=== PATIENT | female | born 1995 | race Caucasian/White ===

== ENCOUNTER 2020-03-22 19:40 | Inpatient (IN) | payer MEDICAID ==
[~2020-03-22] VITALS: Ht 152.4 cm; Wt 56.7 kg
[2020-03-22] MEDS ORDERED: FERR325T6 PO (20:15)
[2020-03-22] MEDS ORDERED: PREN-182 PO (20:15)
[2020-03-22] MEDS ORDERED: LACTATED RINGERS 1,000 ML IV SCH ×2 (21:00→21:45)
[2020-03-22] MEDS ORDERED: LIDOCAINE HCL 1% 20ML VIAL (Pyxis) INJ INFIL SCH (21:45)
[2020-03-22] MEDS ORDERED: DEXT 5%/LR + PITOCIN 20UNITS/L 1,000 ML IV SCH (21:45)
[2020-03-22] MEDS ORDERED: BUTORPHANOL TARTRATE 2 MG/ML VIAL IV PRN (21:45)
[2020-03-22] MEDS ORDERED: NALOXONE HCL 0.4 MG/ML 1ML VIAL IM PRN (21:45)
[2020-03-22] MEDS ORDERED: PENICILLIN G POTASSIUM 5 MMU in DEXT 5% WATER 100 ML IV SCH (22:00)
[2020-03-22 22:50] LABS: CLARITY URINE CLEAR (CLEAR); COLOR URINE YELLOW (YELLOW); KETONES URINE NEGATIVE (NEGATIVE); LEUKOCYTE ESTERASE URINE NEGATIVE (NEGATIVE); NITRITE URINE NEGATIVE (NEGATIVE); OCCULT BLOOD URINE NEGATIVE (NEGATIVE); PH URINE 5.5 (4.5-8.0); PROTEIN URINE NEGATIVE (NEGATIVE); SPECIFIC GRAVITY URINE 1.003 (1.005-1.030); UROBILINOGEN URINE 0.2 E.U./dL (0.2-1.0)
[2020-03-22 22:51] LABS: BASOPHILS % 0.5 % (0.0-2.0); EOSINOPHILS % 0.9 % (0.0-5.0); HEMATOCRIT. 36.8 % (36.0-48.0); HEMOGLOBIN. 11.9 g/dL (12.0-16.0); LYMPHOCYTES % 30.7 % (20.0-50.0); MEAN CORPUSCULAR HEMOGLOBIN 26.8 pg (28.0-32.0); MEAN CORPUSCULAR VOLUME 83.2 fL (81.0-99.0); MEAN PLATELET VOLUME 9.5 fl (7.4-10.4); MONOCYTES % 6.4 % (2.0-8.0); NEUTROPHILS % 61.5 % (40.0-76.0); PLATELET 271 x1000/uL (130-400); RED BLOOD CELL COUNT 4.43 mill/uL (4.2-5.4); RED CELL DISTRIBUTION WIDTH 15.6 % (11.6-14.6)
[2020-03-22 22:52] LABS: CHLORIDE 107 mEq/L (98-107)
[2020-03-22 22:57] LABS: PARTIAL THROMBOPLASTIN TIME 29.9 sec (23.4-31.0); PROTHROMBIN TIME 10.8 sec (9.6-11.0)
[2020-03-22] MEDS ORDERED: AMPICILLIN 2GM in NS 100ML 100 ML IV NR (23:00)
[2020-03-22 23:04] LABS: *AMPHETAMINES SCREEN URINE NEGATIVE (NEGATIVE); *BARBITURATES SCREEN URINE NEGATIVE (NEGATIVE); *BENZODIAZEPINES SCREEN URINE NEGATIVE (NEGATIVE); *COCAINE SCREEN URINE NEGATIVE (NEGATIVE); CANNABINOID URINE SCREEN NEGATIVE (NEGATIVE); METHADONE URINE SCREEN NEGATIVE (NEGATIVE); OPIATES URINE SCREEN NEGATIVE (NEGATIVE); PHENCYCLIDINE URINE SCREEN NEGATIVE (NEGATIVE)
[2020-03-23] MEDS ORDERED: METOCLOPRAMIDE HCL 10MG/2ML VIAL IV SCH
[2020-03-23 01:05] LABS: HEPATITIS B SURFACE ANTIGEN NEGATIVE
[2020-03-23] MEDS ORDERED: PENICILLIN G POTASSIUM 2.5 MMU in DEXTROSE 5% WATER 50 ML IV SCH (02:00)
[2020-03-23] MEDS ORDERED: AMPICILLIN 1,000 MG in SODIUM CHLORIDE 0.9% 50 ML IV SCH (05:00)
[2020-03-23] MEDS ORDERED: METHYLERGONOVINE MALEATE 0.2 MG/ML IM PRN ×2 (06:30)
[2020-03-23] MEDS ORDERED: BISACODYL 10MG SUPP PR PRN (06:30)
[2020-03-23] MEDS ORDERED: IBUPROFEN 400MG TABLET PO PRN (06:30)
[2020-03-23] MEDS ORDERED: DEXT 5%/LR + PITOCIN 20UNITS/L 1,000 ML IV SCH (06:30)
[2020-03-23] MEDS ORDERED: DIPHENHYDRAMINE 25MG CAPSULE PO PRN (06:30)
[2020-03-23] MEDS ORDERED: LANOLIN OINT 7GM TUBE TOP PRN (06:30)
[2020-03-23] MEDS ORDERED: GLYCERIN/WITCH HAZEL LEAF MEDICATED PAD TOP PRN (06:30)
[2020-03-23] MEDS ORDERED: BENZOCAINE/LANOLIN/ALOE VERA SPRAY TOP PRN (06:30)
[2020-03-23] MEDS ORDERED: ACETAMINOPHEN WITH CODEINE 300/30MG TABLET PO PRN (06:30)
[2020-03-23] MEDS ORDERED: HEMORRHOIDAL SUPP PR PRN (06:30)
[2020-03-23 08:00] VITALS: BP 109/63
[2020-03-23] MEDS: SIMETHICONE 80MG TABLET CHEW PO SCH ×4 (08:00→20:26)
[2020-03-23 08:30] VITALS: BP 108/63
[2020-03-23] MEDS: IBUPROFEN 800MG TABLET PO PRN ×2 (14:29→20:26)
[2020-03-23] MEDS: PRENATAL VIT/FE FUMARATE/FA TABLET PO SCH (14:29)
[2020-03-23 16:00] VITALS: BP 101/66
[2020-03-23 16:33] LABS: BASOPHILS % 0.1 % (0.0-2.0); HEMATOCRIT. 32.6 % (36.0-48.0); HEMOGLOBIN. 10.2 g/dL (12.0-16.0); LYMPHOCYTES % 15.8 % (20.0-50.0); MEAN CORPUSCULAR HEMOGLOBIN 26.5 pg (28.0-32.0); MEAN CORPUSCULAR VOLUME 84.4 fL (81.0-99.0); MEAN PLATELET VOLUME 8.7 fl (7.4-10.4); MONOCYTES % 5.9 % (2.0-8.0); NEUTROPHILS % 78.2 % (40.0-76.0); PLATELET 230 x1000/uL (130-400); RED BLOOD CELL COUNT 3.87 mill/uL (4.2-5.4); RED CELL DISTRIBUTION WIDTH 15.5 % (11.6-14.6)
[2020-03-23 16:45] LABS: CHLORIDE 110 mEq/L (98-107)
[2020-03-23 20:00] VITALS: BP 104/64
[2020-03-23] MEDS ORDERED: DOCUSATE SODIUM 100MG CAPSULE PO SCH (21:00)
[2020-03-24] MEDS: FERROUS SULFATE 325MG TABLET PO SCH ×2 (07:30→12:30)
[2020-03-24 08:00] VITALS: BP 101/66
[2020-03-24] MEDS: SIMETHICONE 80MG TABLET CHEW PO SCH ×2 (08:00→13:00)
[2020-03-24] MEDS: PRENATAL VIT/FE FUMARATE/FA TABLET PO SCH (09:00)
== END 2020-03-24 20:36 | disposition home or self-care (01) | DRG 560 ==
LOC: 8 EST LDRP 19:40 → OBSVTOIN 19:40 → 8EST 03-23 07:50
PROVIDERS: ADMIT Obstetrics & Gynecology; ATTEND Obstetrics & Gynecology
PROC: 10E0XZZ Delivery of Products of Conception, External Approach (ICD-10-PCS; principal; 2020-03-23)
DX: O80 Encounter for full-term uncomplicated delivery (principal); Z37.0 Single live birth; Z3A.37 37 weeks gestation of pregnancy; Z79.899 Other long term (current) drug therapy; Z20.828 Contact with and (suspected) exposure to other viral communicable diseases
CPT/HCPCS: 36415; 76805; 76818; 80053; 80305; 81003; 85025; 86592; 86703; 86762; 86850; 86900; 87340; 87426; 99281; J0290; J0595; J2540; J2590; J2765; J7060; J7120; U0003